=== PATIENT | male | born 1975 | race Hispanic/Latino ===

== ENCOUNTER 2022-06-13 15:00 | Outpatient (RCR) | payer OTHER ==
[~2022-06-13 15:00] MED LIST: ATACAND4 MG PO; NIFEDIPINE ER30 M1 PO
== END 2022-06-24 ==
LOC: PT 15:00
PROVIDERS: ATTEND Orthopaedic Surgery
DX: S83.231D Complex tear of medial meniscus, current injury, right knee, subsequent encounter (principal); M62.81 Muscle weakness (generalized); M25.561 Pain in right knee; M25.661 Stiffness of right knee, not elsewhere classified; R26.2 Difficulty in walking, not elsewhere classified